=== PATIENT | female | born 1955 | race Caucasian/White ===

== ENCOUNTER 2025-08-29 11:16 | Outpatient (CLI) | payer MEDICARE, OTHER, SELFPAY ==
--- NOTE | ~2025-08-29 | XR_ITS ---
EXAMINATION: XR wrist LT min 3V DATE: 08/29/2025 11:51 INDICATION: Injury TECHNIQUE: Left wrist x-rays were obtained. COMPARISON: None. FINDINGS: Oblique fracture through the proximal metaphyseal region of the little finger metacarpal bone noted with approximately 3 mm of foreshortening, and slight dorsal displacement. No pathologic lesion is seen. Carpometacarpal articulation of the fifth digit appears slightly widened along the radial aspect. No other definite fracture seen. IMPRESSION: 1. Oblique minimally displaced fracture through the proximal fifth digit or little finger metacarpal bone with possible slight subluxation at the little finger carpometacarpal articulation Reviewed, dictated and finalized at location A. H STRAIGHTENER IMPRESSION: 1. Oblique minimally displaced fracture through the proximal fifth digit or lit tle finger metacarpal bone with possible slight subluxation at the little finge r carpometacarpal articulation
== END 2025-08-29 11:17 | disposition home or self-care (01) ==
PROVIDERS: PCP Internal Medicine; Visit Provider Internal Medicine
DX: M25.532 Pain in left wrist (principal)
CPT/HCPCS: 73110